=== PATIENT | female | born 1985 | race Caucasian/White ===

== ENCOUNTER 2021-09-13 13:44 | Outpatient (CLI) | payer OTHER, SELFPAY ==
[2021-09-13 15:10] LABS: Basophils % 0.9 %; Eosinophils # 0.1 10^3/uL (0.0-0.8); Eosinophils % 1.9 %; Hematocrit 39.8 % (37.0-47.0); Hemoglobin 13.3 g/dL (11.5-15.3); Lymphocytes # 1.3 10^3/uL (0.8-4.8); Lymphocytes % 30.3 %; Mean Corpuscular HGB Conc 33.4 g/dL (30.0-36.0); Mean Corpuscular Hemoglobin 31.7 pg (28.0-34.0); Mean Corpuscular Volume 94.8 fl (81-99); Monocytes # 0.4 10^3/uL (0.2-0.9); Monocytes % 8.3 %; Neutrophils # 2.46 10^3/uL (1.8-7.7); Neutrophils % 58.4 %; Nucleated Red Blood Cells % 0 %; Platelet Count 222 10^3/cmm (130-400); Red Cell Distribution Width 11.9 % (12.1-15.1); White Blood Count 4.2 10^3/uL (4.0-10.0)
[2021-09-13 15:48] LABS: LAB Peripheral Smear Sent for Review
== END 2021-09-13 13:45 | disposition home or self-care (01) ==
LOC: LAB 13:48
PROVIDERS: PCP Family Medicine; Visit Provider Family Medicine
DX: E80.6 Other disorders of bilirubin metabolism (principal)
CPT/HCPCS: 80503; 85025

== ENCOUNTER 2023-09-08 18:52 | Emergency (ER) | payer OTHER, SELFPAY ==
[2023-09-08 19:26] VITALS: BP 124/80; PULSE 80; RESP 17; TEMP 36.9; O2SAT 100; BMI 27.0
[2023-09-08 22:57] LABS: Add Urine Microscopic? YES; Bilirubin Urine Neg (Negative); Blood Urine Neg (Negative); Glucose Urine UA Norm (Normal); Ketones Urine 1+ (Negative); Leukocyte Esterase Urine Trace (Negative); Nitrate Urine Negative (Negative); Protein Urine Trace (Negative); Specific Gravity, Urine 1.025 (1.005-1.030); Urine Appearance Clear (CLEAR); Urine Color Yellow (Yellow); Urobilinogen Urine Neg (Negative); pH Urine 5 (5-7)
[2023-09-08 22:58] LABS: Bacteria Urine TRACE /hpf; Mucus Urine 1+ /hpf; RBC Urine 0-4 /hpf (0-2); Squamous Epithelial Cell Urine 0-4 /hpf (0-5); WBC Urine 0-4 /hpf (0-5)
[2023-09-08 23:44] VITALS: RESP 16; O2SAT 99
[2023-09-08] MEDS: oxyCODONE-APAP 5-325 mg Tablet 2 TAB PO (23:44)
[2023-09-08] MEDS: valACYclovir 1,000 mg Tablet 1000 MG PO (23:46)
--- NOTE | 2023-09-08 23:53 | W.ED.SKABFB ---
HPI - Skin/Abscess/Foreign Bdy General: Chief complaint: Skin/Abscess/Foreign Body Stated complaint: Back pain, 8 weeks preg Time Seen by Provider: 09/08/23 21:32 History of Present Illness: 38 year old female with one to two days of left sided lower chest/upper back pain radiating to the anterior portion of her trunk. Over the past 24 hours, she's noticed her rash in a similar area. It is tender to touch. She can't lay on that side. Pain does not radiate to her groin. No blood in the urine. No fever. No vomiting. She believes she is 8 weeks . Associated symptoms: Reports nausea; Deny chills, fever(s) or vomiting Review of Systems Const: Denies: fever(s) or chills ENMT: Denies: throat pain Card: Denies: chest pain or palpitations Resp: Denies: dyspnea, productive cough or non-productive cough GI: Reports: abdominal pain and nausea; Denies: vomiting : Reports: flank pain; Denies: difficulty voiding, dysuria, hematuria, vaginal bleeding or vaginal discharge Musc: Reports: back pain Skin/Breast: Reports: rash Physical Exam Const: COMMON NORMALS: no acute distress GENERAL APPEARANCE: cooperative; not ill appearing and not frail appearing HENMT: COMMON NORMALS: normocephalic, atraumatic and Normal external nose present HEAD & SCALP: normocephalic and atraumatic FACE & SINUS: normal facial exam and face symmetric NOSE: Normal external nose present Eye: COMMON NORMALS: Equal, round and reactive pupils present and EOMs intact bilaterally PUPIL: Yes Equal, round and reactive pupils present Neck/C-Spine: GENERAL: Yes trachea midline Chest: CHEST: Yes Symmetrical chest wall rise Resp: COMMON NORMALS: normal respiratory effort, No retractions, No use of accessory muscles and clear to auscultation bilaterally AUSCULTATION: clear to auscultation bilaterally Cardio: COMMON NORMALS: regular rate and regular rhythm RATE: regular rate RHYTHM: regular rhythm GI: COMMON NORMALS: Normal to inspection, nondistended, normoactive bowel sounds present : BLADDER/KIDNEY EXAM: Yes CVA tenderness Back/Pelvis: GENERAL BACK: Yes CVA tenderness CVA tenderness: left Extremity: COMMON NORMALS: no pedal edema Neuro: ARIADNA COMA SCALE: document GCS findings [place] coma scale eye opening: Spontaneous [place] coma scale verbal response: Orientated [place] coma scale motor response: [place] commands [place] coma scale total score: 15 SENSORY EXAM: Yes extremities (intact) Psych: COMMON NORMALS: speech normal SPEECH: Yes normal speech Skin: OTHER: Slightly raised rash with erythema and central clearing present on the left trunk. It is tender to touch to some degree. No vesicles or weeping. Course Vital Signs: Vital signs: Vital Signs Temperature 98.5 F 09/08/23 19:26 Pulse Rate 76 09/09/23 00:30 Respiratory Rate 16 09/09/23 00:30 Blood Pressure 110/68 09/09/23 00:30 Pulse Oximetry 100 09/09/23 00:30 Oxygen Delivery Me thod Room Air 09/08/23 19:26 MDM - Skin/Abscess/Foreign Bdy Medicial Decision Making UA is negative for significant blood or infection. Rash is in classic Zoster distribution, and is tender. Will treat with Valacyclovir and pain medication. Closeout patient follow up given the fact that she is 8 weeks . She knows to return for any new or worsening symptoms including spreading rash despite treatment, fever, etcetera. Lab Data Laboratory Results Urine Color Yellow (Yellow) 09/08/23 22:22 Urine Appearance Clear (CLEAR) 09/08/23 22:22 Urine pH 5 (5-7) 09/08/23 22:22 Ur Specific [place] 1.025 (1.005-1.030) 09/08/23 22:22 Urine Protein Trace (Negative) 09/08/23 22:22 Urine Glucose (UA) Norm (Normal) 09/08/23 22:22 Urine Ketones 1+ (Negative) H 09/08/23 22:22 Urine Blood Neg (Negative) 09/08/23 22:22 Urine Nitrate Negative (Negative) 09/08/23 22:22 Urine Bilirubin Neg (Negative) 09/08/23 22:22 Urine Urobilinogen Neg mg/dL (Negative) 09/08/23 22:22 Ur Leukocyte Esterase Trace (Negative) H 09/08/23 22:22 Urine RBC 0-4 /hpf (0-2) H 09/08/23 22:22 Urine WBC 0-4 /hpf (0-5) H 09/08/23 22:22 Ur Squamous Epith Cells 0-4 /hpf (0-5) H 09/08/23 22:22 Amorphous Sediment Not Reportable 09/08/23 22:22 Urine Bacteria Trace /hpf (NONE) 09/08/23 22:22 Urine Mucus 1+ /hpf 09/08/23 22:22 No radiology studies performed this visit Discharge Plan Discharge Patient Disposition: Home Clinical Impression: Herpes zoster Condition: Stable Prescriptions: New Valtrex 1 gram tablet 1,000 mg PO Q8H 7 Days Qty: 21 0RF Percocet 7.5-325 mg tablet 1 tab PO Q6H PRN (Reason: pain) Qty: 10 0RF Discharge Orders: Discharge ED (Routine); Ordered 09/08/23 Ordered By: James Nick Referrals: Deyanira Beavers DO [Primary Care Provider] - 1-3 days Patient Instructions: Shingles (ED), Opioid Safety, Pain Management Activity Restrictions/Additional Instructions: Return for any problems. Use pain medication sparingly, one half, to 1 tab as needed. Antivirals as directed. See your doctor next week. Coding Level of Care Code ED [employer] for Elaine De La Torre
[2023-09-09 00:30] VITALS: BP 110/68; PULSE 76; RESP 16; O2SAT 100
== END 2023-09-08 23:45 | disposition home or self-care (01) ==
PROVIDERS: Emergency Provider Emergency Medicine; PCP Family Medicine
DX: B02.9 Zoster without complications (principal)
CPT/HCPCS: 81001; 99283